=== PATIENT | male | born 1960 | race Caucasian/White ===

== ENCOUNTER 2020-06-14 11:55 | Emergency (ER) | payer BC ==
--- OUTSIDE RECORDS SUMMARY | 2020-06-14 12:19 | XMS REPORT | Continuity of Care Document ---
:1960 Author Organization [employer] Care Team Providers Name Role Phone [employer] Unavailable Un available Problems Problem Status Onset Classification Date Comments Sourc e Date Reported M54.2 - Active [facility] CERVICALGIA 9 Brush M47.2 - OTHER SPONDY Medications Medication Details Route Status Patient Ordering Order Source Instructions Provider Date gabapentin 300 MG 300 mg = 1 Active Mis hilario Oral Capsule cap, PO, 019 Neuro TID, # 90 cap, 0 Refill(s), Pharmacy: [facility] [id number] cyclobenzaprine 10 10 mg = 1 Active Mis hilario mg oral tablet tab, PO, 019 Neuro TID, 0 Refill(s) sertraline 25 mg 25 mg = 1 Active Misch er oral tablet tab, PO, 019 Neuro Daily, 0 Refill(s) propranolol 10 mg 10 mg = 1 Active Misc her oral tablet tab, PO, 019 Neuro BID, 0 Refill(s) Allergies, Adverse Reactions, Alerts Substance Category Reaction Severity Reaction Status Date Comments S ource type Reported ampicillin Assertion Drug Active Mis hilario allergy Neuro Immunizations No Data Provided for This Section Results No Data Provided for This Section Pathology Reports No Data Provided for This Section Diagnostic Reports Report Value Date Source Spine cervical wo Clinical Indication: - M47. 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 FINDINGS: ALIGNMENT AND GENERAL ASSESS MENT: There is no myelomalacia or or cord edema. There is no cerebellar tonsillar ectopia. Flow is present from both vertebral arteries and the C1-C2 articulation is intact. The prevertebral soft tissues are normal. DISC S PACES: C2-C3: There is no significa nt disc bulge, protrusion, or degenerative change and no spinal or foraminal stenosis. C3-C4: There is no significa nt disc bulge, protrusion, or degenerative change and no spinal or foraminal stenosis. C4-C5: There is no significa nt disc bulge, protrusion, or degenerative change and no spinal or foraminal stenosis. C5-C6: There is no signific ant disc bulge, protrusion, or degenerative change and no spinal or foraminal stenosis. C6-C7: There is a 2.5 mm le ft lateral bridging osteophyte and hypertrophic change uncovertebral joints with attenuation of the distal left lateral recess and moderate bilateral foraminal stenosis. C7-T1: There is no signific ant disc bulge, protrusion, or degenerative change and no spinal or foraminal stenosis. IMPRESSION: C6-C7: There is a 2.5 mm le ft lateral bridging osteophyte and hypertrophic change uncovertebral joints with attenuation of the distal left lateral recess and moderate bilateral foraminal stenosis. SL: DAJUAN-BLAZE Consultation Notes No Data Provided for This Section Discharge Summaries No Data Provided for This Section History and Physicals No Data Provided for This Section Vital Signs Vital Sign Value Date Comments Source Weight 85.625 11/24/2018 [facility] Height 172.72 cm 11/24/2018 [facility] BMI Calculated 28.7 11/24/2018 [facility] Heart Rate 73 11/24/2018 [facility] Systolic (mm Hg) 166 11/24/2018 [facility] Juancarlos ro Diastolic (mm Hg) 106 11/24/2018 [facility] Ne uro Encounters Location Location Encounter Encounter Reason Attending ADM DC Stat us Source Details Type Number For Provider Date Date Visit [facility] Outpt Diag [id number] Jesus 10/29 10/30 [facility] Outpatient Services [facility] Imaging Brush MNA Phone [id number] 11/09 11/11 Misc her Neurosurger Message /2018 Neur o [facility] Outpatient [id number] Joseph Lee 11/24 Acti ve [facility] M[facility] Outpatient [id number] Joseph Lee 11/24 11/25 [facility]ischer Neurosurger /2018 Neuro [facility] MNA Phone [id number] 12/23 12/25 Misc her Neurology Message /2018 [facility] Procedures No Data Provided for This Section Assessment and Plan No Data Provided for This Section Plan of Care No Data Provided for This Section Social History Social History Date Source Social History TypeResponse 11/24/2018 [facility] Alcohol Current Smoking Status Never smoker; Exposure to Tobacco Smoke None; Cigarette Smoking Last 365 Days No; Reg Smoking Cessation Counseling No entered on: 11/24/18 No data available for this 10/30/2018 TAYLOR Lizarraga and section Family History No Data Provided for This Section Advance Directives No Data Provided for This Section Functional Status No Data Provided for This Section
--- OUTSIDE RECORDS SUMMARY | 2020-06-14 12:19 | XMS REPORT | Continuity of Care Document ---
:1960 Author Organization [facility] Address [address] [place] [address] Care Team Providers Name Role Phone Kanu Lee Attending Clinician KIZZY Attending Clinician Unavailable Abdiaziz Crain Attending Clinician Problems Condition Condition Condition Status Onset Resolution Last Treating Co mments Source Name Details Category Date Date Treatment Clinician Date M54.2 - Diagnosis Active 2018-10-29 Me moria CERVICALGI 3-15 16:09:00 l A M47.2 - M54.2 - 00:01: Herm manasa OTHER CERVICALGI 00 SPONDY A M47.2 - OTHER SPONDY Active 10/23/2018 [facility] [place] Shoulder Shoulder Problem Active Unive rs pain, pain, ity of right right [place] [facility] Bursitis Bursitis Problem Active Unive rs of of ity of deltoid, deltoid, [place] right right Physici ans Anterior Anterior Problem Active Unive rs neck pain neck pain ity of [place] [facility] Cervical Cervical Problem Active Unive rs radiculopa radiculopa it [place] of [place] osteoarth[place] osteoarth[place] Ph ysici itis of itis of ans spine spine Allergies, Adverse Reactions, Alerts Allergy Allergy Status Severity Reaction(s) Onset Inactive Treating Comm ents Source Name Type Date Date Clinician kirsten curtis Active Nilda Bah Social History Social Habit Start Date Stop Date Quantity Comments Source Social History 2018-10-30 2018-10-30 Valentin chaney 04:59:00 04:59:00 Medications Ordered Filled Start Stop Current Ordering Indication Dosage Frequency Signature Comments Components Source Medication Medication Date Date Medication? Clinician (SIG) Name Name Cyclobenzap Cyclobenzap Yes JOSE TAKE 1 [facility] rine HCl - rine HCl - 4-22 SABONGHY TABLET AT ity of 10 MG Oral 10 MG Oral 00:00: M.D. BEDTIME [place] Tablet Tablet 00 NEEDED. Physici ans gabapentin 2019- Yes 300 mg = 1 M emoria 300 MG Oral 4-16 cap, PO, l Capsule 15:56: TID, # 90 Lacey nn 00 cap, 0 Refill(s), Pharmacy: [facility] [id number] cyclobenzap 2019 Yes 10 mg = 1 M emoria rine 10 mg 4-16 tab, PO, l oral tablet 15:45: TID, 0 Herm manasa 00 Refill(s) sertraline 2019- Yes 25 mg = 1 Me moria 25 mg oral 4-16 tab, PO, l tablet 15:45: Daily, 0 Olvin 00 Refill(s) propranolol 2019 Yes 10 mg = 1 M emoria 10 mg oral 4-16 tab, PO, l tablet 15:45: BID, 0 Olvin 00 Refill(s) methylPREDN methylPREDN Yes JOSE PLEASE [facility] ISolone 4 ISolone 4 3-15 SABONGHY TAKE ity of MG Oral MG Oral 00:00: M.D. DIRECTED [place] as Tablet Tablet 00 [facility] ans Pack Pack Cyclobenzap Cyclobenzap Yes JOSE 1 TAKE 1 Univers rine HCl - rine HCl - 3-15 SABONGHY TABLET AT ity of 10 MG Oral 10 MG Oral 00:00: M.D. BEDTIME. [place] Tablet Tablet 00 Physici ans methylPREDN methylPREDN 2018-0 Yes JOSE PLEASE [facility] ISolone 4 ISolone 4 2-13 SABONGHY TAKE ity of MG Oral MG Oral 00:00: M.D. DIRECTED [place] as Tablet Tablet 00 [facility] Therapy ans Pack Pack Cyclobenzap Cyclobenzap 0 Yes JOSE Q0.3333D TAKE 1 Univers rine HCl - rine HCl - 2-13 SABONGHY TABLET 3 ity of 10 MG Oral 10 MG Oral 00:00: M.D. TIMES [place] Tablet Tablet 00 DAILY Physici NEEDED. ans Vital Signs Vital Name Observation Time Observation Value Comments Source Weight 2018-11-24 15:40:00 [facility] Height 2018-11-24 15:40:00 172.72 cm [facility] BMI Calculated 2018-11-24 15:40:00 Nilda mckeon [place] Heart Rate 2018-11-24 15:40:00 Valentin [place] Systolic (mm Hg) 2018-11-24 15:40:00 Deuce kuhn [place] Diastolic (mm Hg) 2018-11-24 15:40:00 Mem [facility] [place] Procedures This patient has no known procedures. Encounters Start End Encounter Admission Attending Care Care Encounter Source Date/Time Date/Time Type Type Clinicians Facility Department ID 2018-12-23 2018-12-24 Outpatient MHMISCHER MHMISCHER [id number] 10:41:29 23:59:59 2018-11-24 2018-11-24 Outpatient RosaJoseph MHMISCHER MHMISCHER [id number] 10:20:00 23:59:59 Kanu 00 2018-11-09 2018-11-10 Outpatient MHMISCHER MHMISCHER [id number] 10:39:00 23:59:59 2018-11-09 2018-11-09 FINA Montalvo [facility] [id number] Univers 10:00:00 10:00:00 t; Charles GARCIA [facility] Manolo GARCIA M.D. Physi ci ans 2018-10-29 2018-10-29 [place] [id number] 16:00:00 23:59:00 Jose Peter 00 2018-10-23 2018-10-23 Geri CRAIN [facility] UTP [id number] Univers 09:15:00 09:15:00 t; Charles GARCIA [facility] Manolo GARCIA M.D. Physi ci ans 2018-09-23 2018-09-23 Geri CRAIN [facility] [id number] Univers 13:45:00 13:45:00 t; [facility] Results This patient has no known results.
[2020-06-14] MEDS ORDERED: TETANUS & DIPHTHERIA TOX,ADULT 0.5 ML VIAL ONE (12:43)
[2020-06-14] MEDS ORDERED: LIDOCAINE 1% MPF 5 ML VIAL ONE (12:43)
--- NOTE | 2020-06-14 13:10 | RAD REPORT ---
EXAM DESCRIPTION: RAD - Hand Left 3 View - 06/14/2020 12:48 pm CLINICAL HISTORY: laceration left thumb;Pain COMPARISON: No comparisons FINDINGS: Soft tissue swelling is seen about the first finger. No fracture, dislocation or foreign b kami.
--- NOTE | 2020-06-14 13:27 | EDPHYS ---
Physician Documentation [facility] Name: Sherman Denny Age: 60 yrs Sex: Male : 1960 Arrival Date: 06/14/2020 Time: 11:57 Bed 19 Private MD: ED Physician Robin Santos HPI: 06/14 13:11 This 60 yrs old Male presents to ER via Ambulatory with complaints of rn Laceration To Finger. 13:11 The patient has a laceration. The laceration(s) is(are) located on the left thumb. rn Onset: The symptoms/episode began/occurred just prior to arrival. The patient has not experienced similar symptoms in the past. Reports accidentally cut left thumb with blade, bleeding controlled, left handed, no blood thinners, unknown last tetanus. . Historical: - Allergies: 12:07 No Known Allergies; jd3 - Home Meds: 12:07 amiloride oral oral [Active]; jd3 - PMHx: 12:07 High Cholesterol; Anxiety; Hypertension; jd3 - PSHx: 12:07 Carpal Tunnel Repair; right rotater cuff; jd3 - Immunization history:: Adult Immunizations up to date, Last tetanus immunization: < 10 years ago. - Social history:: Smoking status: Patient denies any tobacco usage or history of. - Family history:: not pertinent. - Hospitalizations: : No recent hospitalization is reported. ROS: 13:11 Constitutional: Negative for fever, chills, and weight loss, MS/Extremity: + left thumb rn laceration Exam: 13:11 Constitutional: This is a well developed, well nourished patient who is awake, alert, rn and in no acute distress. MS/ Extremity: Pulses equal, no cyanosis. Neurovascular intact. Full, normal range of motion. 2 cm superficial laceration left thumb, volar surface, no active bleeding, no bone exposed, no foreign body Vital Signs: 12:07 BP 139 / 104; Pulse 76; Resp 17 S; Temp 97.9(TE); Pulse Ox 99% on R/A; Weight 89.81 kg jd3 (R); Height 5 ft. 8 in. (172.72 cm) (R); Pain 1/10; 12:07 Body Mass Index 30.11 (89.81 kg, 172.72 cm) jd3 Laceration: 13:25 Wound Repair of 2cm ( 0.8in ) subcutaneous laceration to palmar aspect of distal kb phalanx of left thumb. Linear shaped.. Distal neuro/vascular/tendon intact. Anesthesia: Wound infiltrated with 2 mls of 1% lidocaine. Wound prep: Extensive cleansing with betadine with hibiclenz by air technician by me, Wound irrigation with saline by me. Skin closed with 5 5-0 Prolene using simple sutures and sterile technique. Patient tolerated well. MDM: 12:12 Patient medically screened. rn 13:19 Test interpretation: by ED physician or midlevel provider: plain radiologic studies, rn Xray left hand negative for fracture/foreign body.. 13:26 Data reviewed: vital signs, nurses notes. Counseling: I had a detailed discussion with kb the patient and/or guardian regarding: the historical points, exam findings, and any diagnostic results supporting the discharge/admit diagnosis, radiology results, the need for outpatient follow up, a family practitioner, to return to the emergency department if symptoms worsen or persist or if there are any questions or concerns that arise at home. 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 Exp: bp 10/22/2021. Lot #: [id number]. } Route: IM; Site: right deltoid; 13:42 Follow up: Response: No adverse reaction 12:30 Drug: Lidocaine (1 %) 1 vials {Note: AT B/S FOR LMP.} Volume: 5 ml; Route: Infiltration;bp Disposition: 16:31 Co-signature as Attending Physician, Robin Santos MD. Chart complete. rn Disposition: 06/14/20 13:27 Discharged to Home. Impression: Laceration without foreign body of left thumb without damage to nail. - Condition is Stable. - Discharge Instructions: Laceration Care, Adult, [id number]. - Prescriptions for Bactrim DS 800- 160 mg Oral Tablet - take 1 tablet by ORAL route every 12 hours for 7 days; 14 tablet. - Medication Reconciliation Form, Thank You Letter, Antibiotic Education, Prescription Opioid Use form. - Follow up: Emergency Department; When: As needed; Reason: Worsening of condition. Follow up: Private Physician; When: 2 - 3 days; Reason: Recheck today's complaints, Continuance of care, Re-evaluation by your physician. Signatures: Dispatcher [employer] EDKristen Philippe, ADJUNCT NURSING FACULTY-C ADJUNCT NURSING FACULTY-Ckb Robin Santos MD MD rn Smirch, Shelby, RN RN ss Davies, Jonathon, RN RN jCurt Meraz RN RN bp Corrections: (The following items were deleted from the chart) 13:46 13:27 06/14/2020 13:27 Discharged to Home. Impression: Laceration without foreign body ss of left thumb without damage to nail. Condition is Stable. Forms are Medication Reconciliation Form, Thank You Letter, Antibiotic Education, Prescription Opioid Use. Follow up: Emergency Department; When: As needed; Reason: Worsening of condition. Follow up: Private Physician; When: 2 - 3 days; Reason: Recheck today's complaints, Continuance of care, Re-evaluation by your physician. kb
--- NOTE | 2020-06-14 13:27 | ER ---
Nurse's Notes [facility] Name: Sherman Denny Age: 60 yrs Sex: Male : 1960 Arrival Date: 06/14/2020 Time: 11:57 Bed 19 Private MD: Diagnosis: Laceration without foreign body of left thumb without damage to nail Presentation: 06/14 12:05 Chief complaint: Patient states: "I was cutting a piece of pipe and I caught my left jd3 thumb.". Coronavirus screen: At this time, the client does not indicate any symptoms associated with coronavirus-19. Ebola Screen: Patient negative for fever greater than or equal to 101.5 degrees Fahrenheit, and additional compatible Ebola Virus Disease symptoms. Initial Sepsis Screen: Does the patient meet any 2 criteria? No. Patient's initial sepsis screen is negative. Does the patient have a suspected source of infection? No. Patient's initial sepsis screen is negative. Risk Assessment: Do you want to hurt yourself or someone else? Patient reports no desire to harm self or others. Onset of symptoms was June 14, 2020. 12:05 Method Of Arrival: Ambulatory jd3 12:05 Acuity: BENJI 3 jd3 Historical: - Allergies: 12:07 No Known Allergies; jd3 - Home Meds: 12:07 amiloride oral oral [Active]; jd3 - PMHx: 12:07 High Cholesterol; Anxiety; Hypertension; jd3 - PSHx: 12:07 Carpal Tunnel Repair; right rotater cuff; jd3 - Immunization history:: Adult Immunizations up to date, Last tetanus immunization: < 10 years ago. - Social history:: Smoking status: Patient denies any tobacco usage or history of. - Family history:: not pertinent. - Hospitalizations: : No recent hospitalization is reported. Vital Signs: 12:07 BP 139 / 104; Pulse 76; Resp 17 S; Temp 97.9(TE); Pulse Ox 99% on R/A; Weight 89.81 kg jd3 (R); Height 5 ft. 8 in. (172.72 cm) (R); Pain 1/10; 12:07 Body Mass Index 30.11 (89.81 kg, 172.72 cm) jd3 ED Course: 11:57 Patient arrived in ED. ag5 12:05 Triage completed. jd3 12:08 Arm band placed on. jd3 12:12 Robin Santos MD is Attending Physician. rn 12:26 Curt Thakur, RN is Primary Nurse. bp 12:48 XRAY Hand LEFT 3 View In Process Unspecified. EDMS 13:45 Patient did not have IV access during this emergency room visit. 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 Exp: bp 10/22/2021. Lot #: [id number]. } Route: IM; Site: right deltoid; 13:42 Follow up: Response: No adverse reaction ss 12:30 Drug: Lidocaine (1 %) 1 vials {Note: AT B/S FOR LMP.} Volume: 5 ml; Route: Infiltration;bp Outcome: 13:27 Discharge ordered by . kb 13:45 Discharged to home ambulatory, with family. ss 13:45 Condition: good 13:45 Discharge instructions given to patient, family, Instructed on discharge instructions, follow up and referral plans. wound care, Demonstrated understanding of instructions, follow-up care, medications, Prescriptions given X 1. 13:46 Patient left the ED. ss Signatures: Dispatcher [employer] EDMS Kristen Ellis, MANUFACTURING TEAM MEMBER-C MANUFACTURING TEAM MEMBER-Ckb Robin Santos MD MD rn Smirch, Shelby, RN RN Max Daugherty RN RN jd3 Peltier, Brian, RN RN bp Gaskin, Ajare ag5 Corrections: (The following items were deleted from the chart) 12:09 12:07 Pulse 76bpm; Resp 17bpm; Spontaneous; Pulse Ox 99% RA; Temp 97.9F Temporal; 89.81 jd3 kg Reported; Height 5 ft. 8 in. Reported; BMI: 30.1; Pain 1/10; jd3
[2020-06-14 13:51] VITALS: BP 139/104; TEMP 97.9; O2SAT 99
== END 2020-06-14 13:46 | disposition home or self-care (01) ==
LOC: ER 11:55
PROC: 0JQK0ZZ Repair Left Hand Subcutaneous Tissue and Fascia, Open Approach (ICD-10-PCS; principal; 2020-06-14)
DX: S61.012A Laceration without foreign body of left thumb without damage to nail, initial encounter (principal); W26.8XXA Contact with other sharp object(s), not elsewhere classified, initial encounter; Y93.89 Activity, other specified; Y92.9 Unspecified place or not applicable; Z23 Encounter for immunization; I10 Essential (primary) hypertension; E78.00 Pure hypercholesterolemia, unspecified; F41.9 Anxiety disorder, unspecified
CPT/HCPCS: 90471; 90714; 99283